=== PATIENT | female | born 1950 | race Caucasian/White ===

== ENCOUNTER 2024-06-11 15:53 | Inpatient (IN) | payer BC ==
[~2024-06-11] VITALS: Ht 154.9 cm; Wt 51.7 kg
[2024-06-11 16:49] LABS: BASOPHILS % (AUTO) 0.3 % (0.0-2.0); EOSINOPHILS % (AUTO) 0.3 % (0.0-6.0); HEMATOCRIT 44 % (33-45); HEMOGLOBIN 15.3 g/dL (11.5-14.8); LYMPHOCYTES # (AUTO) 1.8 K/uL (0.8-4.8); LYMPHOCYTES % (AUTO) 11.4 % (20.0-44.0); MEAN CORPUSCULAR HEMOGLOBIN 33 PG (26.0-33.0); MEAN CORPUSCULAR HGB CONC 35 g/dl (31.0-36.0); MEAN CORPUSCULAR VOLUME 95 fL (82-100); MONOCYTES % (AUTO) 6.4 % (2.0-12.0); NEUTROPHILS # (AUTO) 12.7 K/uL (1.8-8.9); NEUTROPHILS % (AUTO) 81.6 % (43.0-81.0); PLATELET COUNT (AUTO) 344 K/uL (150-450); RED BLOOD CELL COUNT(AUTO) 4.59 MIL/uL (4.0-5.2); RED CELL DISTRIBUTION WIDTH 12.2 % (11.5-15.0); WHITE BLOOD COUNT (AUTO) 15.5 K/uL (4.3-11.0)
[2024-06-11 17:01] LABS: CALCIUM, SERUM 9.8 mg/dL (8.5-10.1); CARBON DIOXIDE 27 mmol/L (21-32); CHLORIDE 104 mmol/L (98-107); GLUCOSE 95 mg/dL (74-106); POTASSIUM 4.6 mmol/L (3.5-5.1); SODIUM SERUM 138 mmol/L (136-145); UREA NITROGEN, BLOOD 12 mg/dL (7-18)
[2024-06-11 17:13] LABS: ALANINE AMINOTRANSFERASE 13 U/L (12-78); ALBUMIN 4.3 g/dL (3.4-5.0); ALKALINE PHOSPHATASE 76 U/L (46-116); ASPARTATE AMINOTRANSFERASE 15 U/L (15-37); BILIRUBIN,DIRECT 0.1 mg/dL (0.0-0.2); BILIRUBIN,TOTAL 0.3 mg/dL (0.2-1.0); NT-PRO BNP 63 pg/mL (0-125); TOTAL PROTEIN, SERUM 7.7 g/dL (6.4-8.2)
[2024-06-11] MEDS: TDAP [DIPH/PERTUSSIS/TET] 0.5 ML VIAL IM ONE (17:29)
[2024-06-11] MEDS ORDERED: TRAZ-252 PO (18:10)
[2024-06-11] MEDS ORDERED: ASPI-1420 PO (18:10)
[2024-06-11] MEDS ORDERED: VITAMIN E PO (18:10)
[2024-06-11] MEDS ORDERED: ASCO100058 PO (18:10)
[2024-06-11] MEDS ORDERED: OMEG-167 PO (18:10)
[2024-06-11] MEDS ORDERED: PRAV80TA21 PO (18:10)
[2024-06-11] MEDS ORDERED: DENO60DI SQ (18:10)
[2024-06-11] MEDS ORDERED: MINO2.5T PO (18:10)
[2024-06-11] MEDS ORDERED: ONDANSETRON HCL/PF 4 MG/2 ML VIAL IVP PRN (19:00)
[2024-06-11] MEDS ORDERED: MAGNESIUM HYDROXIDE 30 ML UDC PO PRN (19:00)
[2024-06-11] MEDS ORDERED: MAG HYDROX/AL HYDROX/SIMETH 30 ML UDC PO PRN (19:00)
[2024-06-11 20:00] VITALS: BP 105/56; TEMP 97.9
[2024-06-11] MEDS: IV NS 0.9% 1,000 ML IV SCH (21:03)
[2024-06-11] MEDS: ACETAMINOPHEN 325 MG TABLET PO PRN (23:21)
[2024-06-12 00:47] VITALS: BP 105/56; TEMP 97.9; O2SAT 99
[2024-06-12 00:48] VITALS: BP 121/55; TEMP 98.1; O2SAT 95
[2024-06-12 04:45] VITALS: BP 108/49; TEMP 98; O2SAT 95
[2024-06-12 06:30] LABS: BASOPHILS % (AUTO) 0.3 % (0.0-2.0); EOSINOPHILS # (AUTO) 0.1 K/uL (0.0-0.7); EOSINOPHILS % (AUTO) 1.8 % (0.0-6.0); HEMATOCRIT 43 % (33-45); HEMOGLOBIN 14.5 g/dL (11.5-14.8); LYMPHOCYTES # (AUTO) 2.8 K/uL (0.8-4.8); LYMPHOCYTES % (AUTO) 37.2 % (20.0-44.0); MEAN CORPUSCULAR HEMOGLOBIN 33 PG (26.0-33.0); MEAN CORPUSCULAR HGB CONC 34 g/dl (31.0-36.0); MEAN CORPUSCULAR VOLUME 96 fL (82-100); MONOCYTES # (AUTO) 0.8 K/uL (0.1-1.30); NEUTROPHILS # (AUTO) 3.8 K/uL (1.8-8.9); NEUTROPHILS % (AUTO) 50.7 % (43.0-81.0); PLATELET COUNT (AUTO) 310 K/uL (150-450); RED BLOOD CELL COUNT(AUTO) 4.46 MIL/uL (4.0-5.2); RED CELL DISTRIBUTION WIDTH 12.2 % (11.5-15.0); WHITE BLOOD COUNT (AUTO) 7.6 K/uL (4.3-11.0)
[2024-06-12 06:50] LABS: CREATININE 0.6 mg/dL (0.6-1.3); MAGNESIUM 2.2 mg/dL (1.8-2.4); PHOSPHORUS 3.3 mg/dL (2.5-4.9)
[2024-06-12 07:14] LABS: THYROID STIMULATING HORMONE 1.47 uIU/mL (0.358-3.74)
[2024-06-12 08:00] VITALS: BP 124/49; TEMP 97.9; O2SAT 96
[2024-06-12] MEDS ORDERED: Medication Not On Formulary EA (Omega-3 Fatty Acids/Fish Oil (Fish Oil 1,000 Mg Softgel) PO SCH (09:00)
[2024-06-12] MEDS ORDERED: VITAMIN E PO SCH (09:00)
[2024-06-12] MEDS: ASCORBIC ACID 500 MG TABLET PO SCH (09:03)
[2024-06-12] MEDS: ATORVASTATIN 10 MG TABLET PO SCH (09:03)
[2024-06-12] MEDS: ASPIRIN EC 81 MG TABLET.DR PO SCH (09:03)
[2024-06-12] MEDS: PANTOPRAZOLE 40 MG VIAL IV SCH (09:03)
[2024-06-12] MEDS: MINOXIDIL (2.5MG) 2.5 MG TABLET PO SCH (09:04)
[2024-06-12 12:00] VITALS: BP 118/75; TEMP 97.9; O2SAT 96
[2024-06-12 15:29] LABS: APPEARANCE,URINE CLEAR (CLEAR); BILIRUBIN,URINE NEGATIVE (NEGATIVE); BLOOD, URINE NEGATIVE Ery/uL (NEGATIVE); COLOR,URINE YELLOW (YELLOW); KETONES,URINE NEGATIVE (NEGATIVE); LEUKOCYTE ESTERASE ,URINE NEGATIVE (NEGATIVE); NITRITE, URINE NEGATIVE (NEGATIVE); PROTEIN,URINE NEGATIVE (NEGATIVE); UGLUCOSE NEGATIVE (NEGATIVE); UROBILINOGEN,URINE 0.2 EU/dL (0.2)
== END 2024-06-12 16:57 | disposition home or self-care (01) | DRG 989 ==
LOC: ER 15:58 → TELE1 19:12 → MEDSG1 06-12 09:53
PROC: 0JQ10ZZ Repair Face Subcutaneous Tissue and Fascia, Open Approach (ICD-10-PCS; principal; 2024-06-11)
DX: G90.89 Other disorders of autonomic nervous system (principal); D72.829 Elevated white blood cell count, unspecified; I10 Essential (primary) hypertension; E78.5 Hyperlipidemia, unspecified; S01.81XA Laceration without foreign body of other part of head, initial encounter; Y92.9 Unspecified place or not applicable; W07.XXXA Fall from chair, initial encounter; I65.21 Occlusion and stenosis of right carotid artery
CPT/HCPCS: 36415; 70450-TC; 71045-TC; 80048-TC; 80061-TC; 80076-TC; 83735-TC; 83880; 84100-TC; 84443-TC; 84484-TC; 85025-TC; 87086-TC; 90715; 93307-TC; 93880-TC; 97112-TC; 97116-TC; 97530-TC; G0378; J2470; J7030